=== PATIENT | female | born 1950 | race Caucasian/White ===

== ENCOUNTER 2018-06-12 16:19 | Emergency (ER) | payer MEDICARE ==
[2018-06-12 16:47] LABS: #Basophils 0.1 thou/uL (0.0-0.2); #Eosinphils 0.4 thou/uL (0.0-0.7); #Lymphocytes 1.6 thou/uL (1.20-3.40); #Monocytes 0.6 thou/uL (0.11-0.59); #Neutrophils 3.6 thou/uL (1.40-6.50); %Basophils 1.1 % (0.0-1.0); %Eosinophils 6.2 % (0.0-10.0); %Lymphocytes 25.3 % (21.0-51.0); %Monocytes 9.5 % (0.0-10.0); %Neutrophils 57.9 % (42.0-75.0); Hemoglobin 13.3 g/dL (12.0-16.0); Mean Corpuscular HGB CONC 31.7 g/dL (32.0-36.0); Mean Corpuscular Hemoglobin 29.7 pg (27.0-31.0); Mean Corpuscular Volume 93.8 fL (78.0-98.0); Mean Platelet Volume 8.6 fL (7.4-10.4); Platelet Count 229 thou/uL (130-400); Red Blood Cell (RBC) Count 4.46 mill/uL (4.20-5.40); White Blood Cell (WBC) Count 6.2 thou/uL (4.8-10.8)
[2018-06-12 16:57] LABS: Clarity Clear (Clear)
[2018-06-12 16:58] LABS: Bilirubin Negative (Negative); Blood, Urine Trace (Negative); Glucose, Urine (Dipstick) Negative (Negative); Leukocyte Negative (Negative); Nitrite Negative (Negative); Protein, Urine (Dipstick) Negative (Neg-Trace); Urobilinogen 0.2 mg/dL (0.2-1.0)
[2018-06-12 17:04] LABS: Bacteria/HPF Rare-Few HPF (None Seen); RBC/HPF 0-3 HPF (0-3); Squamous Epithelial 0-3 HPF (0-3); WBC/HPF 0-3 HPF (0-3)
[2018-06-12 17:05] LABS: ALT (SGPT) 22 U/L (8-55); AST (SGOT) 24 U/L (5-34); Albumin 4.1 g/dL (3.4-4.8); Alkaline Phosphatase 91 U/L (40-150); Anion Gap 17 mmol/L (10-20); BUN (Urea Nitrogen) 20 mg/dL (9.8-20.1); Bilirubin, Total 0.5 mg/dL (0.2-1.2); Calc. Creatinine Clearance 0 mL/min (70-130); Calcium 9.4 mg/dL (7.8-10.44); Carbon Dioxide 24 mmol/L (23-31); Chloride 102 mmol/L (98-107); Estimated GFR-MDRD 68; Globulin 3.3 g/dL (2.4-3.5); Glucose 82 mg/dL (80-115); Potassium 4.1 mmol/L (3.5-5.1); Protein, Total 7.4 g/dL (6.0-8.3); Sodium 139 mmol/L (136-145)
--- NOTE | 2018-06-12 17:12 | CT ---
NONCONTRAST CT HEAD: Date: 06/12/18 HISTORY: Altered mental status. FINDINGS: There is no evidence of a hemorrhage, acute infarction, mass effect, or midline shift. Ventricular sy stem is normal in size, shape, and position. Mild cerebral volume loss is present. Visualized paranas al sinuses and mastoid air cells are clear. Calvarial structures have a normal appearance. IMPRESSION: No acute intracranial abnormality is demonstrated. Above findings discussed with Dr. Gonsales in the emergency department on 06/12/18 at 1644 hours. CODE CR. POS: LUDWIN
[2018-06-12] MEDS ORDERED: Naloxone HCl 0.4 mg/ml Vial ONE (17:28)
--- NOTE | 2018-06-12 18:15 | CT ---
CT ANGIOGRAM OF THE HEAD CT ANGIOGRAM OF THE NECK POSTCONTRAST HEAD CT 06/12/18 HISTORY: Stroke alert. Altered mental status. COMPARISON: None. TECHNIQUE: CT angiogram of the head and neck are performed in the axial plane. Three dimensional reformatted zack ges are submitted for interpretation. FINDINGS: There is no pathologic enhancement of the brain parenchyma. Bilateral ocular lenses are appropriately located. Both globes are intact. Retrobulbar fat is preserved. Symmetric attenuation of the optic ne rves and ocular rectus muscles. Mild mucosal disease of the right maxillary sinus. No obvious mass in the oral cavity. Midline fatty raphae of the tongue is preserved. Symmetric attenuation of the sternocleidomastoid muscles. Right pa rotid gland appears to be absent. The left parotid gland is slightly atrophic. There is fatty replace ment of both parotid glands. Thyroid gland appears to be hypoplastic. There are varying degrees of central canal stenosis and fora kinsey narrowing on the basis of degenerative change. Varying degrees of central canal stenosis and foraminal narrowing. There are lucencies involving the odontoid process likely due to degenerative change. There are varying degrees of central canal stenosis and foraminal narrowing on the basis of degenera tive change. CT ANGIOGRAM: The aortic arch has appropriate enhancement and luminal diameter. RIGHT CAROTID: The right carotid artery origin, common carotid artery, carotid bifurcation, and internal carotid art lana have appropriate enhancement and luminal diameter. LEFT CAROTID: The left common carotid artery origin, common carotid artery, carotid bifurcation, and internal carot id artery have appropriate enhancement and luminal diameter. There is no evidence of significant sten osis based upon NASCET criteria, in either carotid artery. Left and right vertebral arteries are patent throughout their course in the neck. The left vertebral artery origin is directly from the arch. Vertebral arteries are essentially codominant. CT ANGIOGRAM OF HEAD: Atherosclerosis in both cavernous carotid segment. No significant stenosis in the intracranial biology intern al carotid arteries. ANTERIOR CIRCULATION: Symmetric enhancement and luminal diameter of the A1 and M1 segments. Symmetric enhancement and lumin al diameter of the proximal A2 segment and proximal MCA branches. Both PICA artery origins appear to be unremarkable. Both vertebral arteries supply normal appearing b asilar artery. The left and right P1 segments have appropriate enhancement and luminal diameter. IMPRESSION: 1. No evidence of significant stenosis of the cervical carotid arteries based upon NASCET criter ia. 2. Unremarkable CT angiogram of the [place]. No significant stenosis or vascular occlus ion. Results of the study discussed with Dr. Gonsales, 06/12/18 at 5:43 p.m. Code ALISIA POS: LUDWIN
[2018-06-12 18:32] LABS: Amphetamine Not Detected (NotDetected); Barbiturates Screen Not Detected (NotDetected); Benzodiazepine Screen Not Detected (NotDetected); Cocaine Metabolite Screen Not Detected (NotDetected); Medtox Control Line Valid? VALID (VALID); Methadone Not Detected (NotDetected); Methamphetamine Not Detected (NotDetected); Opiate Screen Not Detected (NotDetected); Oxycodone Screen Not Detected (NotDetected); Phencyclidine (PCP) Not Detected (NotDetected); THC/Cannabinoid Screen Not Detected (NotDetected); Tricyclic Screen Not Detected (NotDetected)
== END 2018-06-12 19:25 | disposition short-term general hospital (02) ==
LOC: BURERS 16:19
DX: R41.82 Altered mental status, unspecified (principal); E05.90 Thyrotoxicosis, unspecified without thyrotoxic crisis or storm; E11.9 Type 2 diabetes mellitus without complications; I10 Essential (primary) hypertension; Z79.899 Other long term (current) drug therapy
CPT/HCPCS: 0042T; 36416; 70450; 70496; 80053; 80306; 81003; 81015; 83605; 84146; 84443; 84484; 85025; 87086; 93005; 94760; 96374; J2310

== ENCOUNTER 2018-08-28 21:20 | Emergency (ER) | payer MEDICARE, OTHER ==
[2018-08-28] MEDS ORDERED: Ketorolac Tromethamine 60 MG/2 ML VIAL ONE (22:23)
[2018-08-28] MEDS ORDERED: Cyclobenzaprine 10 MG TAB ONE (22:24)
[2018-08-28] MEDS ORDERED: Sodium Chloride 0.9% 0 ML ONE (22:59)
== END 2018-08-28 22:36 | disposition home or self-care (01) ==
LOC: BURERS 21:20
DX: M62.838 Other muscle spasm (principal); E11.9 Type 2 diabetes mellitus without complications; I10 Essential (primary) hypertension; Z79.899 Other long term (current) drug therapy
CPT/HCPCS: 96372; J1885; J3490

== ENCOUNTER 2020-04-20 16:57 | Emergency (ER) | payer MEDICARE ==
--- NOTE | 2020-04-20 19:32 | CT ---
CT OF THE BRAIN WITHOUT CONTRAST: 04/20/20 Comparison is made with the 06/12/18 study. There has been no adverse interval change. There is some mild atrophy present with mild compensatory dilatation of the ventricles. No intracranial bleeding or extra-axial hematoma was seen. There is no sign of mass, edema, or stroke. The skull appears intact with no sign of fracture. The visible parana [place] sinuses are clear as are the mastoid air cells. IMPRESSION: No acute intracranial findings. Preliminary report called to Dr. Anderson at 0081 on 04/20/20. POS: HOME
--- NOTE | 2020-04-20 19:37 | CT ---
CT OF THE CERVICAL SPINE 04/20/[address] of the cervical spine was done following trauma. There is reversal of the normal cervical lordosis which could be due to muscle spasm, or could be the patient's normal state. Disc space narrowing is particularly prominent at C5-C6 and C6-C7. Large ant erior osteophytes are seen at these levels as well. No fracture or dislocation was seen in any cervic al level. The C1 to dens distance is normal. There is some cystic changes in the base of the dens. Fi ndings by level follow: C1-C2: No acute findings. C2-C3: Severe left facet arthritis with moderate left foraminal narrowing. C3-C4: Prominent left facet arthritis with moderate left foraminal narrowing. C4-C5: Bilateral facet arthritis with moderate to severe bilateral foraminal narrowing. C5-C6: Moderate to severe bilateral foraminal narrowing. The AP diameter of the spinal canal at this level is approximately 10 mm. C6-C7: Mild bilateral foraminal narrowing. The AP diameter of the spinal canal at this level is about 9 mm. C7-T1: No acute findings. T1-T2: No acute findings. T2-T3: No acute findings. Lung apices are clear. IMPRESSION: Extensive degenerative changes, particularly in the lower cervical regions. Loss of lordosis. No frac ture. Preliminary report called to Dr. Anderson at [id number] on 04/20/20. POS: HOME
== END 2020-04-20 17:38 | disposition home or self-care (01) ==
LOC: BURERS 16:57
DX: S06.0X0A Concussion without loss of consciousness, initial encounter (principal); W01.198A Fall on same level from slipping, tripping and stumbling with subsequent striking against other object, initial encounter; Z79.899 Other long term (current) drug therapy; E11.9 Type 2 diabetes mellitus without complications; I10 Essential (primary) hypertension
CPT/HCPCS: 70450; 72125

== ENCOUNTER 2020-10-20 13:05 | Emergency (ER) | payer MEDICARE ==
[2020-10-20] MEDS ORDERED: Ketorolac Tromethamine 30 MG/ML VIAL ONE (13:31)
[2020-10-20] MEDS ORDERED: HYDROcodone/Acetaminophen 5/325 mg Tablet ONE (13:31)
[2020-10-20] MEDS ORDERED: Lidocaine 2% w/Epinephrine 1:200K 20 ML VIAL ONE (14:16)
[2020-10-20] MEDS ORDERED: Triamcinolone 40 MG/ML VIAL ONE (14:17)
[2020-10-20] MEDS ORDERED: Lidocaine 1% PF 5 ML VIAL ONE (14:29)
== END 2020-10-20 15:05 | disposition home or self-care (01) ==
LOC: BURERS 13:05
DX: M19.012 Primary osteoarthritis, left shoulder (principal); E11.9 Type 2 diabetes mellitus without complications; I10 Essential (primary) hypertension; Z85.850 Personal history of malignant neoplasm of thyroid; Z79.899 Other long term (current) drug therapy
CPT/HCPCS: 20611; 96372; J1885; J3301

== ENCOUNTER 2021-07-29 22:34 | Emergency (ER) | payer MEDICARE ==
[2021-07-29 23:28] LABS: #Basophils 0.1 thou/uL (0.0-0.2); #Eosinphils 0.2 thou/uL (0.0-0.7); #Lymphocytes 1.8 thou/uL (1.20-3.40); #Monocytes 0.8 thou/uL (0.11-0.59); #Neutrophils 7.6 thou/uL (1.40-6.50); %Basophils 0.6 % (0.0-1.0); %Eosinophils 1.6 % (0.0-10.0); %Lymphocytes 17.5 % (21.0-51.0); %Monocytes 7.5 % (0.0-10.0); %Neutrophils 72.8 % (42.0-75.0); Hemoglobin 13.7 g/dL (12.0-16.0); Mean Corpuscular HGB CONC 34.4 g/dL (32.0-36.0); Mean Corpuscular Hemoglobin 31.3 pg (27.0-31.0); Mean Platelet Volume 9.1 fL (7.4-10.4); Platelet Count 228 thou/uL (130-400); RBC Distribution Width 11.9 % (11.5-14.5); Red Blood Cell (RBC) Count 4.37 mill/uL (4.20-5.40); White Blood Cell (WBC) Count 10.4 thou/uL (4.8-10.8)
[2021-07-29 23:40] LABS: ALT (SGPT) 24 U/L (8-55); AST (SGOT) 21 U/L (5-34); Albumin 4.1 g/dL (3.4-4.8); Alkaline Phosphatase 69 U/L (40-110); Anion Gap 18 mmol/L (10-20); BUN (Urea Nitrogen) 24 mg/dL (9.8-20.1); Bilirubin, Total 0.5 mg/dL (0.2-1.2); Calc. Creatinine Clearance 0 mL/min (70-130); Carbon Dioxide 23 mmol/L (23-31); Chloride 106 mmol/L (98-107); Globulin 2.9 g/dL (2.4-3.5); Glucose 117 mg/dL (83-110); Potassium 3.7 mmol/L (3.5-5.1); Sodium 143 mmol/L (136-145)
[2021-07-30 21:55] LABS: SARS-CoV-2 PCR by NAA Not Detected (NotDetected)
== END 2021-07-30 00:30 | disposition short-term general hospital (02) ==
LOC: BURERS 22:34
DX: K22.2 Esophageal obstruction (principal); Z20.822 Contact with and (suspected) exposure to COVID-19; E11.9 Type 2 diabetes mellitus without complications; I10 Essential (primary) hypertension; K21.9 Gastro-esophageal reflux disease without esophagitis; Z79.890 Hormone replacement therapy; Z79.899 Other long term (current) drug therapy
CPT/HCPCS: 71046; 80053; 85025; 96360; 99285; U0003; U0005

== ENCOUNTER 2022-06-25 22:19 | Emergency (ER) | payer OTHER, MEDICARE ==
[2022-06-25 22:49] LABS: #Basophils 0.1 thou/uL (0.0-0.2); #Eosinphils 0.1 thou/uL (0.0-0.7); #Lymphocytes 1.6 thou/uL (1.20-3.40); #Monocytes 0.5 thou/uL (0.11-0.59); #Neutrophils 5.1 thou/uL (1.40-6.50); %Basophils 0.8 % (0.0-1.0); %Eosinophils 1.7 % (0.0-10.0); %Lymphocytes 21.3 % (21.0-51.0); %Monocytes 7.1 % (0.0-10.0); %Neutrophils 69.1 % (42.0-75.0); Hemoglobin 11.2 g/dL (12.0-16.0); Mean Corpuscular HGB CONC 35.8 g/dL (32.0-36.0); Mean Corpuscular Hemoglobin 31.4 pg (27.0-31.0); Mean Corpuscular Volume 87.8 fl (78.0-98.0); Mean Platelet Volume 9.5 fL (7.4-10.4); Platelet Count 249 10x3/uL (130-400); RBC Distribution Width 11.6 % (11.5-14.5); Red Blood Cell (RBC) Count 3.58 mill/uL (4.20-5.40); White Blood Cell (WBC) Count 7.4 10x3/uL (4.8-10.8)
[2022-06-25 23:07] LABS: ALT (SGPT) 25 U/L (8-55); AST (SGOT) 33 U/L (5-34); Albumin 3.8 g/dL (3.4-4.8); Alkaline Phosphatase 81 U/L (40-110); Anion Gap 14 mmol/L (10-20); BUN (Urea Nitrogen) 12 mg/dL (9.8-20.1); Bilirubin, Total 0.4 mg/dL (0.2-1.2); Calc. Creatinine Clearance 0 mL/min (70-130); Calcium 8.7 mg/dL (7.8-10.44); Carbon Dioxide 23 mmol/L (23-31); Chloride 94 mmol/L (98-107); Estimated GFR 92; Globulin 2.3 g/dL (2.4-3.5); Glucose 129 mg/dL (83-110); Potassium 3.6 mmol/L (3.5-5.1); Protein, Total 6.1 g/dL (5.8-8.1); Sodium 127 mmol/L (136-145)
== END 2022-06-26 03:33 | disposition short-term general hospital (02) ==
LOC: BURERS 22:19
DX: S02.2XXA Fracture of nasal bones, initial encounter for closed fracture (principal); E87.1 Hypo-osmolality and hyponatremia; E11.9 Type 2 diabetes mellitus without complications; K21.9 Gastro-esophageal reflux disease without esophagitis; I10 Essential (primary) hypertension; Z79.899 Other long term (current) drug therapy; W19.XXXA Unspecified fall, initial encounter
CPT/HCPCS: 70450; 70486; 71045; 72125; 80053; 83880; 84484; 85025; 93005; 96360

== ENCOUNTER 2023-06-05 14:49 | Emergency (ER) | payer MEDICARE ==
[2023-06-05] MEDS ORDERED: Acetaminophen/Codeine 30-300mg Tablet ONE (15:10)
[2023-06-05] MEDS ORDERED: Cephalexin 250 MG CAP ONE (15:10)
[2023-06-05 16:07] LABS: #Basophils 0.1 thou/uL (0.0-0.2); #Lymphocytes 0.9 thou/uL (1.20-3.40); #Monocytes 0.7 thou/uL (0.11-0.59); #Neutrophils 9.3 thou/uL (1.40-6.50); %Basophils 0.7 % (0.0-1.0); %Eosinophils 0.4 % (0.0-10.0); %Lymphocytes 7.8 % (21.0-51.0); %Neutrophils 85.2 % (42.0-75.0); Hematocrit 31.6 % (36.0-47.0); Hemoglobin 10.7 g/dL (12.0-16.0); Mean Corpuscular HGB CONC 33.9 g/dL (32.0-36.0); Mean Corpuscular Hemoglobin 28.7 pg (27.0-31.0); Mean Corpuscular Volume 84.5 fl (78.0-98.0); Mean Platelet Volume 7.5 fL (7.4-10.4); Platelet Count 251 10x3/uL (130-400); RBC Distribution Width 11.3 % (11.5-14.5); Red Blood Cell (RBC) Count 3.73 mill/uL (4.20-5.40); White Blood Cell (WBC) Count 10.9 10x3/uL (4.8-10.8)
[2023-06-05 16:24] LABS: ALT (SGPT) 21 U/L (8-55); AST (SGOT) 26 U/L (5-34); Albumin 3.8 g/dL (3.4-4.8); Alkaline Phosphatase 93 U/L (40-110); Anion Gap 15 mmol/L (10-20); BUN (Urea Nitrogen) 16 mg/dL (9.8-20.1); Bilirubin, Total 0.5 mg/dL (0.2-1.2); Calc. Creatinine Clearance 0 mL/min (70-130); Carbon Dioxide 22 mmol/L (23-31); Chloride 97 mmol/L (98-107); Estimated GFR 83; Globulin 2.3 g/dL (2.4-3.5); Glucose 132 mg/dL (83-110); Potassium 3.9 mmol/L (3.5-5.1); Protein, Total 6.1 g/dL (5.8-8.1); Sodium 130 mmol/L (136-145)
[2023-06-05 16:25] LABS: Troponin I Less than 0.010 ng/mL (< 0.028)
== END 2023-06-05 17:14 | disposition home or self-care (01) ==
LOC: BURERS 14:49
DX: L03.031 Cellulitis of right toe (principal); I10 Essential (primary) hypertension; E11.9 Type 2 diabetes mellitus without complications; Z79.899 Other long term (current) drug therapy
CPT/HCPCS: 36415; 80053; 83605; 83880; 84484; 85025; 87040; 93005

== ENCOUNTER 2024-12-12 18:51 | Emergency (ER) | payer MEDICARE | END 2024-12-12 21:00 | disposition home or self-care (01) | LOC: BURERS 18:51 | DX: M25.551 Pain in right hip (principal); E11.9 Type 2 diabetes mellitus without complications; I10 Essential (primary) hypertension; W01.198A Fall on same level from slipping, tripping and stumbling with subsequent striking against other object, initial encounter | CPT/HCPCS: 72170; 99283 ==